=== PATIENT | female | born 1995 | race Caucasian/White ===

== ENCOUNTER 2016-11-25 11:55 | Emergency (ER) | payer OTHER ==
[~2016-11-25] VITALS: Ht 162.6 cm; Wt 99.5 kg
[~2016-11-25 11:55] MED LIST: ACET325T33 PO; ACET500C5 PO; AMO500 PO; AMOX500T PO; BENA20TA48 PO; CIPR500T4 PO; HYDR-3498 PO; IBUP-1542 PO; PROM6.25 PO
[2016-11-25 11:59] VITALS: Ht 162.6 cm; Wt 99.5 kg
--- NOTE | 2016-11-25 13:39 | RADRPT ---
PROCEDURE: XR Wrist. CLINICAL INDICATION: Left wrist pain TECHNIQUE: AP, lateral and oblique views of the left wrist were performed. COMPARISON: No prior studies are available for comparison. FINDINGS: There is no acute fracture or dislocation. Alignment is normal. Joint spaces are preserved. Visualized soft tissues are grossly unremarkable. IMPRESSION: 1. No radiographic evidence of acute osseous abnormality of the left wrist. RPTAT: UU .Andres Ashraf MD, MD Date Time Electronically viewed and signed by .Andres Ashraf MD, on 11/25/2016 13:38 .K/
--- NOTE | 2016-11-25 13:42 | ERD ---
ER Documentation Chief Complaint Date/Time DATE: 11/25/16 TIME: 13:37 Chief Complaint HURT LEFT WRIST LAST NIGHT DOING NAILS. ICED BUT NOT IMPROVED HPI This is a 21-year-old female presents to the ER with left wrist pain that started last night after she was filing her nails. Patient states that she felt that the left side of her wrist began to swell and she started to feel mild pain. Patient used icy hot and wrapped her wrist, took 2 Tylenol and fell asleep. When she woke up this morning she felt completely better. Patient went to work and she was moving some chairs around when she noticed that the left side of her wrist began to swell once again and she developed mild pain. Patient denies any numbness or tingling of her fingers. She denies any forearm pain she denies any other trauma. Patient denies any fever or chills. ROS 12 point review of systems was done, all negative except per HPI. Medications Home Meds Active Scripts Ibuprofen* (Motrin*) 600 Mg Tab, 600 MG PO Q6, #30 TAB Prov:FERNANDO EDGE 11/25/16 Acetaminophen* (Tylenol*) 325 Mg Tablet, 2 TAB PO Q4 Y for PAIN AND OR ELEVATED TEMP, #30 TAB Prov:KRISTEN LAGOS PA-C 12/13/15 Amoxicillin* (Amoxicillin*) 500 Mg Cap, 500 MG PO BID for 10 Days, CAP Prov:KRISTEN LAGOS PA-C 12/13/15 Ibuprofen* (Motrin*) 600 Mg Tab, 600 MG PO Q6H Y for PAIN, #14 TAB Prov:MARC ISAAC MD 05/04/15 Promethazine w/Codeine* (Phenergan w/Codeine* Syrup) 5 Ml Syrup, 5 ML PO Q4H Y for COUGH for 5 Days, ML 6 OZ Prov:MARC ISAAC MD 05/04/15 Acetaminophen* (Tylophen*) 500 Mg Capsule, 1 CAP PO Q6H Y for PAIN AND OR ELEVATED TEMP, #20 CAP Prov:CHACHA KENT 03/26/15 Ciprofloxacin Hcl* (Ciprofloxacin Hcl*) 500 Mg Tablet, 500 MG PO BID for 7 Days , TAB Prov:CHACHA KENT 03/26/15 Hydrocodone Bit-Acetaminophen* ([place]*) 5-325 Mg Tab, 1 TAB PO Q6 Y for PAIN for 5 Days, TAB Prov:SAURABH JAMES MD 02/05/15 Amoxicillin Trihydrate (Amoxicillin) 500 Mg Tablet, 500 MG PO QID for 10 Days, TAB Prov:SAURABH JAMES MD 02/05/15 Reported Medications Benazepril Hcl* (Benazepril Hcl*) 20 Mg Tablet, 20 MG PO BID, TAB 02/05/15 Allergies Allergies: Coded Allergies: No Known Allergy (Unverified , 05/04/15) PMhx/Soc History of Surgery: No Anesthesia Reaction: No Hx Neurological Disorder: No Hx Respiratory Disorders: No Hx Cardiac Disorders: Yes (HTN) Hx Psychiatric Problems: No Hx Miscellaneous Medical Probl: Yes (NEPHROTIC SYNDROME) Hx Alcohol Use: No Hx Substance Use: No Hx Tobacco Use: No Physical Exam Vitals Vital Signs Date Time Temp Pulse Resp B/P Pulse Ox O2 Delivery O2 Flow Rate FiO2 11/25/16 11:59 98.5 88 16 168/113 96 Physical Exam GENERAL: The patient is well developed and appropriate for usual state of health , in no apparent distress. HEENT: Atraumatic. CHEST: Clear to auscultation bilaterally. There are no rales, wheezes or rhonchi. HEART: Regular rate and rhythm. No murmurs, clicks, rubs or gallops. EXTREMITIES: The left wrist is without obvious asymmetry or deformity when compared to the right wrist. No surface trauma, open wounds, swelling or obvious deformity. No overlying erythema or warmth. No bony crepitus or focal area tender next to palpation. No scaphoid fullness or tenderness to direct palpation or axial load. Normal flexion, extension, ulnar, radial deviation. Motor/sensory function of ulnar radial median nerves are intact. Ulnar and radial pulses intact. Negative Tinel sign negative Phill test. There is no forearm tenderness. NEURO: Alert and oriented. SKIN: There is no apparent rash or petechia. The skin is warm and dry. Procedures/MDM Differential diagnosis includes but is not limited to fracture, dislocation, ligament injury, tendinitis, de Quervain's tenosynovitis, carpal tunnel syndrome , osteomyelitis. This is likely a wrist overuse.. Patient has normal range of motion of the wrist and is neurovascularly intact. Suspicion for infection or osteomyelitis is low as patient does not have erythema, warmth to the touch, discharge from the area. Patient will be sent home with ibuprofen. She is to follow-up with her primary care doctor within 1-2 days or return to ER sooner if symptoms worsen. My medical decision making was shared with the patient she understands and agrees with plan Departure Diagnosis: Primary Impression: Pain in wrist Condition: Stable FERNANDO EDGE Nov 25, 2016 13:42
[2016-11-25] MEDS ORDERED: IBUP-1542 PO (13:46)
== END 2016-11-25 14:12 | disposition home or self-care (01) ==
LOC: FTE 11:55
DX: M25.532 Pain in left wrist (principal); I10 Essential (primary) hypertension
CPT/HCPCS: 73110; Z7502

== ENCOUNTER 2017-03-18 17:42 | Emergency (ER) | payer OTHER ==
[~2017-03-18] VITALS: Ht 162.6 cm; Wt 101.0 kg
[~2017-03-18 17:42] MED LIST changes: -AMO500 PO; +AMOX500C2 PO
[2017-03-18 17:48] VITALS: Ht 162.6 cm; Wt 101.0 kg
--- NOTE | 2017-03-18 18:54 | ERD ---
ER Documentation Chief Complaint Chief Complaint right chest wall pain since yesterday HPI 22 yo female presents for chest wall pain x1 day. Pt stated the pain occured when she was lying on her stomach with pressure to the area. She states the pain resolved when she repositioned herself. She reports a 3/10 intermittent dull pain only when pressure is applied. She denies dyspnea, palpitations, SOB, [place], ST, cough or fever. ROS All systems reviewed and are negative except as per history of present illness. Medications Home Meds Active Scripts Naproxen* (Naprosyn*) 500 Mg Tablet, 500 MG PO BID Y for PAIN AND/OR INFLAMMATION, #30 TAB Prov:OSWALDO HIGGINBOTHAMC 03/18/17 Ibuprofen* (Motrin*) 600 Mg Tab, 600 MG PO Q6, #30 TAB Prov:FERNANDO EDGE 11/25/16 Acetaminophen* (Tylenol*) 325 Mg Tablet, 2 TAB PO Q4 Y for PAIN AND OR ELEVATED TEMP, #30 TAB Prov:KRISTEN LAGOS PA-C 12/13/15 Amoxicillin* (Amoxicillin*) 500 Mg Cap, 500 MG PO BID for 10 Days, CAP Prov:KRISTEN LAGOS PA-C 12/13/15 Ibuprofen* (Motrin*) 600 Mg Tab, 600 MG PO Q6H Y for PAIN, #14 TAB Prov:MARC ISAAC MD 05/04/15 Promethazine w/Codeine* (Phenergan w/Codeine* Syrup) 5 Ml Syrup, 5 ML PO Q4H Y for COUGH for 5 Days, ML 6 OZ Prov:MARC ISAAC MD 05/04/15 Acetaminophen* (Tylophen*) 500 Mg Capsule, 1 CAP PO Q6H Y for PAIN AND OR ELEVATED TEMP, #20 CAP Prov:CHACHA KENT 03/26/15 Ciprofloxacin Hcl* (Ciprofloxacin Hcl*) 500 Mg Tablet, 500 MG PO BID for 7 Days , TAB Prov:CHACHA KENT 03/26/15 Hydrocodone Bit-Acetaminophen* ([place]*) 5-325 Mg Tab, 1 TAB PO Q6 Y for PAIN for 5 Days, TAB Prov:SAURABH JAMES MD 02/05/15 Amoxicillin Trihydrate (Amoxicillin) 500 Mg Tablet, 500 MG PO QID for 10 Days, TAB Prov:SAURABH JAMES MD 02/05/15 Reported Medications Benazepril Hcl* (Benazepril Hcl*) 20 Mg Tablet, 20 MG PO BID, TAB 02/05/15 Allergies Allergies: Coded Allergies: No Known Allergy (Unverified , 05/04/15) PMhx/Soc History of Surgery: No Anesthesia Reaction: No Hx Neurological Disorder: No Hx Respiratory Disorders: No Hx Cardiac Disorders: No Hx Psychiatric Problems: No Hx Miscellaneous Medical Probl: No Hx Alcohol Use: No Hx Substance Use: No Hx Tobacco Use: No Physical Exam Vitals Vital Signs Date Time Temp Pulse Resp B/P Pulse Ox O2 Delivery O2 Flow Rate FiO2 03/18/17 17:48 98.6 107 20 138/93 98 Physical Exam Const: WD, WN, NAD Head: Atraumatic Eyes: Normal Conjunctiva ENT: Normal External Ears, Nose and Mouth. Neck: Full range of motion..~ No meningismus. Resp: Pain reproducible when pressure applied to the R medial chest. NO erythema or swelling. Clear to auscultation bilaterally Cardio: Regular rate and rhythm, no murmurs Abd: Soft, non tender, non distended. Normal bowel sounds Skin: No petechiae or rashes Back: No midline or flank tenderness Ext: No cyanosis, or edema Neur: Awake and alert Psych: Normal Mood and Affect Procedures/MDM 22 yo female presents with reporducible Chest pain. Pt denied SOB , palpitations or cardiac hx. Her international heart score is 0.PE otherwise normal. Pt non hypoxic and denies fever or cough. History and physical consistent with likely costochondritis. Low suspicion for ACS, dysrhythmia, PE, DVT, abscess or suspicious mass. F/u with PMD in 1-2 days. I have recommended rest and NSAIDS. Pt agrees with plan. Departure Diagnosis: Primary Impression: Chest wall pain OSWALDO HIGGINBOTHAM PA-C Mar 18, 2017 18:54
[2017-03-18] MEDS ORDERED: NAPR-260 PO (19:00)
== END 2017-03-18 19:16 | disposition home or self-care (01) ==
LOC: FTE 17:42
DX: R07.89 Other chest pain (principal)
CPT/HCPCS: 99283

== ENCOUNTER 2017-03-26 07:38 | Emergency (ER) | payer OTHER ==
[~2017-03-26] VITALS: Ht 162.6 cm; Wt 101.0 kg
[~2017-03-26 07:38] MED LIST changes: +NAPR-260 PO
[2017-03-26 07:41] VITALS: Ht 162.6 cm; Wt 101.0 kg
--- NOTE | 2017-03-26 08:30 | ERD ---
ER Documentation Chief Complaint Chief Complaint cough & congestion 2 days HPI 22-year-old female, previously healthy, presents to the emergency department complaining of 3 days with progressive worsening of respiratory symptoms including dry cough, subjective fever, sore throat, and general malaise. The patient has been taking NyQuil and DayQuil with movement of her symptoms. Denies chills, no shortness of breath. No flu vaccine. ROS all systems reviewed and are negative except as per history of present illness. Medications Home Meds Active Scripts Naproxen* (Naprosyn*) 500 Mg Tablet, 500 MG PO BID Y for PAIN AND/OR INFLAMMATION, #30 TAB Prov:OSWALDO HIGGINBOTHAMC 03/18/17 Ibuprofen* (Motrin*) 600 Mg Tab, 600 MG PO Q6, #30 TAB Prov:FERNANDO EDGE 11/25/16 Acetaminophen* (Tylenol*) 325 Mg Tablet, 2 TAB PO Q4 Y for PAIN AND OR ELEVATED TEMP, #30 TAB Prov:KRISTEN LAGOS PA-C 12/13/15 Amoxicillin* (Amoxicillin*) 500 Mg Cap, 500 MG PO BID for 10 Days, CAP Prov:KRISTEN LAGOS PA-C 12/13/15 Ibuprofen* (Motrin*) 600 Mg Tab, 600 MG PO Q6H Y for PAIN, #14 TAB Prov:MARC ISAAC MD 05/04/15 Promethazine w/Codeine* (Phenergan w/Codeine* Syrup) 5 Ml Syrup, 5 ML PO Q4H Y for COUGH for 5 Days, ML 6 OZ Prov:MARC ISAAC MD 05/04/15 Acetaminophen* (Tylophen*) 500 Mg Capsule, 1 CAP PO Q6H Y for PAIN AND OR ELEVATED TEMP, #20 CAP Prov:CHACHA KENT 03/26/15 Ciprofloxacin Hcl* (Ciprofloxacin Hcl*) 500 Mg Tablet, 500 MG PO BID for 7 Days , TAB Prov:CHACHA KENT 03/26/15 Hydrocodone Bit-Acetaminophen* ([place]*) 5-325 Mg Tab, 1 TAB PO Q6 Y for PAIN for 5 Days, TAB Prov:SAURABH JAMES MD 02/05/15 Amoxicillin Trihydrate (Amoxicillin) 500 Mg Tablet, 500 MG PO QID for 10 Days, TAB Prov:SAURABH JAMES MD 02/05/15 Reported Medications Benazepril Hcl* (Benazepril Hcl*) 20 Mg Tablet, 20 MG PO BID, TAB 02/05/15 Allergies Allergies: Coded Allergies: No Known Allergy (Unverified , 05/04/15) PMhx/Soc History of Surgery: No Anesthesia Reaction: No Hx Neurological Disorder: No Hx Respiratory Disorders: No Hx Cardiac Disorders: No Hx Psychiatric Problems: No Hx Miscellaneous Medical Probl: No Hx Alcohol Use: No Hx Substance Use: No Hx Tobacco Use: No Physical Exam Vitals Vital Signs Date Time Temp Pulse Resp B/P Pulse Ox O2 Delivery O2 Flow Rate FiO2 03/26/17 07:41 97.8 106 18 135/89 99 Physical Exam Const: Alert, oriented, in no distress Head: Atraumatic Eyes: Normal Conjunctiva ENT: Normal External Ears, Nose and Mouth. Neck: Full range of motion..~ No meningismus. Resp: Clear to auscultation bilaterally Cardio: Regular rate and rhythm, no murmurs Procedures/MDM 22-year-old female, presents with cough. Differential diagnoses include viral upper respiratory infection, bronchitis, pneumonia, asthma. Clinical presentation and physical examination consistent with viral upper respiratory infection. The patient will be discharged home we do note for work for 2 days and continue taking [id number] medication as needed for symptom control Departure Diagnosis: Primary Impression: URI, acute Condition: Stable Patient Instructions: Adult Self-Care for Colds IFTIKHAR BRICEÑO MD Mar 26, 2017 08:30
== END 2017-03-26 09:07 | disposition home or self-care (01) ==
LOC: FTE 07:38
DX: J06.9 Acute upper respiratory infection, unspecified (principal)
CPT/HCPCS: 99282

== ENCOUNTER 2017-11-15 14:03 | Emergency (ER) | END 2017-11-15 15:52 | disposition home or self-care (01) ==

== ENCOUNTER 2018-06-14 18:00 | Emergency (ER) | payer SELFPAY ==
[~2018-06-14] VITALS: Ht 162.6 cm; Wt 99.5 kg
[~2018-06-14 18:00] MED LIST changes: +BENA20TA4 PO; -BENA20TA48 PO; +LIDO700A29 TP; -NAPR-260 PO; +NAPR-985 PO
[2018-06-14 18:11] VITALS: Ht 162.6 cm; Wt 99.5 kg
[2018-06-14 18:35] VITALS: BP 179/122; PULSE 108; RESP 18
== END 2018-06-14 18:35 | disposition left against medical advice (07) ==
LOC: FTE 18:00
DX: Z53.21 Procedure and treatment not carried out due to patient leaving prior to being seen by health care provider (principal)

== ENCOUNTER 2018-12-06 23:59 | Emergency (ER) | payer OTHER ==
[~2018-12-06] VITALS: Ht 162.6 cm; Wt 99.9 kg
[2018-12-07 00:08] VITALS: BP 149/79; PULSE 98; RESP 20; Ht 162.6 cm; Wt 99.9 kg
[2018-12-07] MEDS ORDERED: SELE118S2 TOP (00:46)
--- NOTE | 2018-12-07 00:47 | ERD ---
ER Documentation Chief Complaint Chief Complaint 'white spots' on her fingers, abdomen, groin today. no itch/ bleed HPI 23-year-old female presents to ED complaining of white spots on her body. She states she first noticed a small white spot on her Right 4th digit a few months ago. She then noticed a white spot on her abd a few months ago. However, today she noticed these white spots on her perianal region. She denies a previous hx of similar events. She denies any itchiness, bleeding, or pain. She has not tried any medication for this. She denies any fevers, chills, or signs of infection. ROS All systems reviewed and are negative except as per history of present illness. Medications Home Meds Active Scripts Selenium Sulfide* (Selenium Sulfide*) 118 Ml Shampoo, 1 APPLIC TOP ONCE for 30 Days, ML Prov:MIKE SANTAMARIA PA-C 12/07/18 Lidocaine (Lidoderm) 1 Each Adh..patch, 1 EACH TP DAILY for 7 Days Prov:RENATE PASCUAL PA-C 11/15/17 Ibuprofen* (Motrin*) 600 Mg Tab, 600 MG PO Q6H PRN for PAIN AND OR ELEVATED TEMP, #30 TAB Prov:RENATE PASCUAL PA-C 11/15/17 Naproxen* (Naprosyn*) 500 Mg Tablet, 500 MG PO BID PRN for PAIN AND/OR INFLAMMATION, #30 TAB Prov:OSWALDO HIGGINBOTHAM PA-C 03/18/17 Ibuprofen* (Motrin*) 600 Mg Tab, 600 MG PO Q6, #30 TAB Prov:FERNANDO EDGE 11/25/16 Acetaminophen* (Tylenol*) 325 Mg Tablet, 2 TAB PO Q4 PRN for PAIN AND OR ELEVATED TEMP, #30 TAB Prov:KRISTEN LAGOS PA-C 12/13/15 Amoxicillin* (Amoxicillin*) 500 Mg Cap, 500 MG PO BID for 10 Days, CAP Prov:KRISTEN LAGOS PA-C 12/13/15 Ibuprofen* (Motrin*) 600 Mg Tab, 600 MG PO Q6H PRN for PAIN, #14 TAB Prov:MARC ISAAC MD 05/04/15 Promethazine w/Codeine* (Phenergan w/Codeine* Syrup) 5 Ml Syrup, 5 ML PO Q4H PRN for COUGH for 5 Days, ML 6 OZ Prov:MARC ISAAC MD 05/04/15 Acetaminophen* (Tylophen*) 500 Mg Capsule, 1 CAP PO Q6H PRN for PAIN AND OR ELEVATED TEMP, #20 CAP Prov:CHACHA KENT 03/26/15 Ciprofloxacin Hcl* (Ciprofloxacin Hcl*) 500 Mg Tablet, 500 MG PO BID for 7 Days, TAB Prov:CHACHA KENT 03/26/15 Hydrocodone Bit-Acetaminophen* ([place]*) 5-325 Mg Tab, 1 TAB PO Q6 PRN for PAIN for 5 Days, TAB Prov:SAURABH JAMES MD 02/05/15 Amoxicillin Trihydrate (Amoxicillin) 500 Mg Tablet, 500 MG PO QID for 10 Days, TAB Prov:SAURABH JAMES MD 02/05/15 Reported Medications Benazepril Hcl* (Benazepril Hcl*) 20 Mg Tablet, 20 MG PO BID, TAB 02/05/15 Allergies Allergies: Coded Allergies: No Known Allergy (Unverified , 11/15/17) PMhx/Soc History of Surgery: No Anesthesia Reaction: No Hx Neurological Disorder: No Hx Respiratory Disorders: No Hx Cardiac Disorders: No Hx Psychiatric Problems: No Hx Miscellaneous Medical Probl: Yes (NEPHROTIC SYNDROME) Hx Alcohol Use: No Hx Substance Use: No Hx Tobacco Use: No Smoking Status: Never smoker FmHx Family History: No diabetes Physical Exam Vitals Vital Signs Date Temp Pulse Resp B/P (MAP) Pulse Ox O2 O2 Flow FiO2 Time Delivery Rate 12/07/18 97.9 98 20 149/79 100 00:08 (102) Physical Exam Const: No acute distress Head: Atraumatic Eyes: Normal Conjunctiva ENT: Normal External Ears, Nose and Mouth. Neck: Full range of motion. No meningismus. Resp: Clear to auscultation bilaterally Cardio: Regular rate and rhythm, no murmurs Abd: Soft, non tender, non distended. Normal bowel sounds Skin: Small white spots located on right hand 4th digit, abd, perianal region. nonbleeding, nonerythamatous Back: No midline or flank tenderness Ext: No cyanosis, or edema Neur: Awake and alert Psych: Normal Mood and Affect Procedures/MDM ED COURSE: The patient was stable throughout ED course. I kept the patient informed of laboratory and diagnostic imaging results throughout the ED course. MEDICAL DECISION MAKING: Patient is a 23 year old female complaining of white spots x few months on her b [place]. She denies any itchiness, bleeding, redness, fevers, chills, or any other symptoms. On physical exam, I notice the white spots where she stated. They are not bleeding, nonerythamatous. H&P and other data no c/w emergent process. Low suspicion for anaphylaxis, scabies, SJS/TEN, TSS, Lyme Disease, syphilis, RMSF, shingles, disseminated gonorrhea chlamydia, DIC, TTP, ITP, erythema multiforme, sepsis, cellulitis, necrotizing fasciitis, gangrene, meningococcemia, allergic contact dermatitis, urticaria, eczema, tinea infection, or other emergent conditions. At this time, I think pt is suffering from tinea versicolor. She was d/c with Selenium sulfide and told to follow up with PCP and derm. Vital signs were reviewed. Patient is afebrile. Patient was not hypoxic. Patient was hemodynamically stable. Patient was told to follow up with primary care for further care and management. PRESCRIPTION: Selenium sulfide shampoo DISCHARGE: At this time, patient is stable for discharge and outpatient management. I have instructed the patient to follow-up with his/her primary care physician in 1-2 days. I have discussed with the patient the possibility of needing to see a specialist for further workup and imaging studies if symptoms persist. I have instructed the patient to promptly return to the ER for any new or worsening symptoms including increased pain, fever, nausea, vomiting, weakness or LOC. The patient expressed understanding of and agreement with this plan. All questions were answered. Home care instructions were provided. Disclaimer: Inadvertent spelling and grammatical errors are likely due to EHR/dictation software use and do not reflect on the overall quality of patient care. Also, please note that the electronic time recorded on this note does not necessarily reflect the actual time of the patient encounter. Departure Diagnosis: Primary Impression: Tinea versicolor Condition: Stable Patient Instructions: Tinea Versicolor Referrals: COMM[facility] YOU HAVE RECEIVED A MEDICAL SCREENING EXAM AND THE RESULTS INDICATE THAT YOU DO NOT HAVE A CONDITION THAT REQUIRES URGENT TREATMENT IN THE EMERGENCY DEPARTMENT. FURTHER EVALUATION AND TREATMENT OF YOUR CONDITION CAN WAIT UNTIL YOU ARE SEEN IN YOUR DOCTORS OFFICE WITHIN THE NEXT 1-2 DAYS. IT IS YOUR RESPONSIBILITY TO MAKE AN APPOINTMENT FOR FOLOW-UP CARE. IF YOU HAVE A PRIMARY DOCTOR --you should call your primary doctor and schedule an appointment IF YOU DO NOT HAVE A PRIMARY DOCTOR YOU CAN CALL OUR PHYSICIAN REFERRAL HOTLINE AT IF YOU CAN NOT AFFORD TO SEE A PHYSICIAN YOU CAN CHOSE FROM THE FOLLOWING [facility] [address] [place] [facility] [address] [place] [facility] [address] [facility] [address] [facility] [address] [facility]. [facility] [address] [facility] YOU HAVE RECEIVED A MEDICAL SCREENING EXAM AND THE RESULTS INDICATE THAT YOU DO NOT HAVE A CONDITION THAT REQUIRES URGENT TREATMENT IN THE EMERGENCY DEPARTMENT. FURTHER EVALUATION AND TREATMENT OF YOUR CONDITION CAN WAIT UNTIL YOU ARE SEEN IN YOUR DOCTORS OFFICE WITHIN THE NEXT 1-2 DAYS. IT IS YOUR RESPONSIBILITY TO MAKE AN APPOINTMENT FOR FOLOW-UP CARE. IF YOU HAVE A PRIMARY DOCTOR --you should call your primary doctor and schedule and appointment IF YOU DO NOT HAVE A PRIMARY DOCTOR YOU CAN CALL OUR PHYSICIAN REFERRAL HOTLINE AT . IF YOU CAN NOT AFFORD TO SEE A PHYSICIAN YOU CAN CHOSE FROM THE FOLLOWING [facility]: [facility] [address] [place] [address] [facility] [address] [place] [address] [facility] [address] [place] [address] Additional Instructions: Call your primary care doctor TOMORROW for an appointment during the next 2-3 days.See the doctor sooner or return here if your condition worsens before your appointment time. MIKE SANTAMARIA PA-C Dec 07, 2018 00:47
== END 2018-12-07 01:05 | disposition home or self-care (01) ==
LOC: FTE 23:59
DX: B36.0 Pityriasis versicolor (principal)
CPT/HCPCS: 99282